=== PATIENT | female | born 1955 | race Caucasian/White ===

== ENCOUNTER → 2016-10-18 | Outpatient (CLI) | payer BC ==
[~2016-10-18] VITALS: Ht 162.6 cm; Wt 58.6 kg
[~2016-10-18] MED LIST: AMITIZA24 MICROGR PO; BUPROPION HCL150 M2 PO; CALCIUM CITRAT1 EA15 PO; CRANBERRY500 M3 PO; DIFLUCAN150 MG PO; FISH OIL 1,2001 EAC4 PO; PREMARIN0.625 MG PO; VITAMIN C1000 MG PO; VIVELLE-DOT,0.025 MG TD; WOMEN'S DAILY1 EAC4 PO
== END | disposition home or self-care (01) ==
LOC: OPR 10-16 10:00 → EDSTATUS 10:00
PROC: 0BBG3ZX Excision of Left Upper Lung Lobe, Percutaneous Approach, Diagnostic (ICD-10-PCS; principal; 2016-10-18)
DX: R91.8 Other nonspecific abnormal finding of lung field (principal); J95.811 Postprocedural pneumothorax; R04.2 Hemoptysis; R10.13 Epigastric pain
CPT/HCPCS: 71010; 71020; 77012; 88305; 88341 TC; 88342 TC; J3010